=== PATIENT | female | born 1970 | race Caucasian/White ===

== ENCOUNTER 2021-11-26 08:26 | Inpatient (IN) | payer OTHER, SELFPAY ==
[2021-11-26] VITALS (51 sets, daily range): BP systolic 91–122; BP diastolic 70–87; PULSE 87–115; RESP 18; TEMP 36.9; O2SAT 92–100
--- NOTE | ~2021-11-26 | CT_ITS ---
EXAMINATION: CT soft tissue neck w con DATE: 11/26/2021 10:42 INDICATION: Sore throat. Dysphagia. TECHNIQUE: Computed tomography (CT) of the neck was performed with 75 mL Omnipaque-350 intravenous co ntrast. Automated exposure control and iterative reconstruction technique were employed. The dose-josi gth product was 425.42 mGy-cm. COMPARISON: None FINDINGS: There is extensive mucosal thickening in the oropharynx, hypopharynx, and larynx. There is extensive soft tissue swelling and fat stranding in the surrounding deep neck soft tissues. There is a retropharyngeal effusion measuring greater than simple fluid in attenuation with irregular margins, consistent with abscess. The stranding extends inferiorly into the mediastinum. There are no patholo gically enlarged lymph nodes. There is 0% stenosis of the proximal internal carotid arteries relative to normal distal artery lumen diameters. There is an aberrant right subclavian artery. There is near complete opacification of right maxillary sinus. There are multiple broken teeth with periapical jesus encies. There is moderate cervical spondylosis. IMPRESSION: 1. Retropharyngeal abscess. Inflammation of the oropharynx, hypopharynx, larynx, and mediastinum. Reviewed, dictated and finalized at location A. MOLDER IMPRESSION: 1. Retropharyngeal abscess. Inflammation of the oropharynx, hypopharynx, larynx , and mediastinum.
--- NOTE | ~2021-11-26 | CT_ITS ---
EXAMINATION: CT soft tissue neck w con DATE: 11/28/2021 14:52 INDICATION: Trouble breathing. TECHNIQUE: Computed tomography (CT) of the neck was performed with 75 mL Omnipaque-350 intravenous co ntrast. Automated exposure control and iterative reconstruction technique were employed. The dose-josi gth product was 539.14 mGy-cm. COMPARISON: Neck CT 11/26/2021 FINDINGS: The visualized portions of the lung apices demonstrate mild atelectasis. There is mucosal t hickening in the oropharynx and hypopharynx. There is a rim-enhancing low attenuation in the retropha ryngeal region centered to the left of midline with irregular margins measuring 3.1 x 1.1 x 3.4 cm, c onsistent with abscess. There is swelling of the surrounding soft tissues with interval improvement. The epiglottis is normal. There is near complete opacification of right maxillary sinus. There is an aberrant right subclavian artery. There are multiple broken teeth and periapical lucencies. There is moderate cervical spondylosis. IMPRESSION: 1. Left retropharyngeal abscess. Inflammation of the oropharynx and hypopharynx with interval improve ment. Reviewed, dictated and finalized at location A. ERIES MANAGER IMPRESSION: 1. Left retropharyngeal abscess. Inflammation of the oropharynx and hypopharynx with interval improvement.
[2021-11-26 09:45] LABS: Basophils Absolute Auto 0.1 K/mm3 (0.0-0.1); Basophils Percent Auto 0.4 % (0.2-1.2); Hematocrit 42.9 % (37.0-47.0); Hemoglobin 14.3 g/dL (12.0-15.0); Lymphocytes Absolute Auto 1.22 K/mm3 (0.9-3.2); Lymphocytes Percent Auto 5.9 % (18.3-44.2); Mean Corpuscular HGB Conc 33.3 g/dl (32-36); Mean Corpuscular Hemoglobin 29.5 pg (26-34); Mean Corpuscular Volume 88.6 fl (80-100); Mean Platelet Volume 9.8 fl (7.4-10.4); Monocytes Absolute Auto 2.8 K/mm3 (0.1-0.6); Monocytes Percent Auto 13.3 % (2.6-8.5); Neutrophils Absolute Auto 16.6 K/mm3 (1.3-6.7); Neutrophils Percent Auto 79.4 % (45.5-73.1); Platelet Count Result 350 k/mm3 (150-375); Red Blood Count 4.84 M/mm3 (4.2-5.4); Red Cell Distribution Width 12.5 % (11.5-14.5); White Blood Count 20.8 K/mm3 (4.5-10.0)
[2021-11-26 09:55] LABS: Alanine Aminotransferase 13 U/L (4-35); Alkaline Phosphatase 147 U/L (38-126); Anion Gap 12 mmol/L (8-16); Aspartate Amino Transferase 17 U/L (14-36); Bilirubin,Total 0.6 mg/dL (0.2-1.3); Blood Urea Nitrogen 33 mg/dL (7-17); Carbon Dioxide 27 mmol/L (22-30); Chloride 97 mmol/L (98-107); Estimated CRCL calculation 48 ml/min; Estimated Glomerular Filt Rate 53; Glucose 130 mg/dL (65-110); Potassium 4.2 mmol/L (3.4-5.0); Sodium 136 mmol/L (137-145)
--- NOTE | 2021-11-26 10:25 | PC.NURSE ---
Pt O2 sat between 92-93% on room air will walk and measure o2 sat, Dr. Carlton aware
--- NOTE | 2021-11-26 11:40 | ED.GENADULT ---
HPI - General Adult General Chief complaint: Unspecified Stated complaint: congestion, st Time Seen by Provider: 11/26/21 08:42 History of Present Illness HPI narrative: Patient is a 51-year-old female who presents ER with sore throat. Ongoing for 4 days. Reports increased difficulty with swallowing water/food/spit. No difficulty breathing. Reports discomfort in her neck/throat with range of motion. Endorses fever and chills. No known sick contacts. No loss of taste or smell. Related Data Allergies Allergy/AdvReac Type Severity Reaction Status Date / Time No Known Allergies Allergy Verified 11/26/21 12:52 Review of Systems Review of Systems: All systems reviewed & are unremarkable except as noted in HPI and below Constitutional: Constitutional: Denies chills and Reports fever(s) ENT: Reports dysphagia, Denies hoarseness, Reports neck pain, Reports sore throat and Denies tongue swelling Respiratory: Respiratory: Denies cough, Denies dyspnea and Denies stridor Gastrointestinal: Gastrointestinal: Denies abdominal pain, Denies nausea and Denies vomiting PMFSH Past Medical History Medical History (Updated 11/26/21 @ 17:46 by Brandin Haque MD) Healthy female adult Surgical History Surgical History (Updated 11/26/21 @ 17:44 by Brandin Haque MD) No pertinent past surgical history Exam Narrative: GENERAL: Uncomfortable-appearing, well-nourished, and in no acute distress. HEAD: Normocephalic, atraumatic. ENT: Mucous membranes moist. Mild pharyngeal erythema. Uvula midline nonedematous. Patient with mild trismus. Tolerating oral secretions. NECK: Anterior cervical chain lymphadenopathy with tenderness paratracheally. CHEST: Clear to auscultation. No respiratory distress. HEART: Regular rate and rhythm. Normal peripheral pulses. EXTREMITIES: Normal range of motion. No edema. SKIN: Warm, dry, no rash. NEURO: Alert and oriented x3. PSYCH: Normal mood and affect. Course Course Emergency Course: Discussed with ENT who will come scope the patient. They recommend scheduled Decadron as well as scheduled Unasyn. Orders placed with the recommendation. Accepted by hospitalist. Vital Signs Vital signs: Vital Signs Temperature 98.5 F 11/26/21 08:37 Pulse Rate 98 11/26/21 08:37 Respiratory Rate 18 11/26/21 08:37 Blood Pressure 122/87 11/26/21 08:37 Pulse Oximetry 100 11/26/21 08:37 Temperature 98.5 F 11/26/21 08:37 Pulse Rate 115 H 11/26/21 16:30 Respiratory Rate 18 11/26/21 08:47 Blood Pressure 94/70 L 11/26/21 16:01 Pulse Oximetry 96 11/26/21 16:45 Medical Decision Making Vital Signs Vital Signs: Vital Signs Temperature 98.5 F 11/26/21 08:37 Pulse Rate 98 11/26/21 08:37 Respiratory Rate 18 11/26/21 08:37 Blood Pressure 122/87 11/26/21 08:37 Pulse Oximetry 100 11/26/21 08:37 Temperature 98.5 F 11/26/21 08:37 Pulse Rate 115 H 11/26/21 16:30 Respiratory Rate 18 11/26/21 08:47 Blood Pressure 94/70 L 11/26/21 16:01 Pulse Oximetry 96 11/26/21 16:45 Lab Data Result diagrams: 11/26/21 09:16 11/26/21 09:16 Labs: Lab Results 11/26/21 11/26/21 Range/Units 09:16 09:16 WBC 20.8 H (4.5-10.0) K/mm3 RBC 4.84 (4.2-5.4) M/mm3 Hgb 14.3 (12.0-15.0) g/dL Hct 42.9 (37.0-47.0) % MCV 88.6 (80-100) fl MCH 29.5 (26-34) pg MCHC 33.3 (32-36) g/dl RDW 12.5 (11.5-14.5) % Plt Count 350 (150-375) k/mm3 MPV 9.8 (7.4-10.4) fl Immature Gran % (Auto) 1.0 H (0-0.5) % Neut % (Auto) 79.4 H (45.5-73.1) % Lymph % (Auto) 5.9 L (18.3-44.2) % [place] % (Auto) 13.3 H (2.6-8.5) % Eos % (Auto) 0.0 (0-4.4) % Baso % (Auto) 0.4 (0.2-1.2) % Lymph # (Auto) 1.22 (0.9-3.2) K/mm3 [place] # (Auto) 2.8 H (0.1-0.6) K/mm3 Eos # (Auto) 0.0 (0-0.3) K/mm3 Baso # (Auto) 0.1 (0.0-0.1) K/mm3 Abs Immat Gran (auto) 0.20 H (0.00-0.031) K/mm3 Absolute Neuts (auto)
--- NOTE | 2021-11-26 12:14 | PC.NURSE ---
Pt updated on results and plan of care by MD Haque. Pt provided ice pack upon request.
[2021-11-26] MEDS: MORPHINE SULFATE (*CRX) 4 MG/ML INJ IV PUSH (12:53)
[2021-11-26] MEDS: AMPICILLIN SULB 3 GM/NS 100 ML 3 GM/100 ML VIAL IVPB ×2 (12:53→19:52)
[2021-11-26] MEDS: SODIUM CHLORIDE 0.9% IV 1,000 ML 125 ML IV CONT ×2 (13:59→23:23)
--- NOTE | 2021-11-26 16:50 | PC.NURSE ---
MD Pack at bedside performing scope. Pt tolerated well.
--- NOTE | 2021-11-26 17:07 | WPDPROCEDUR ---
Procedures Other Procedures Procedure 1: Other Procedure: Laryngoscopy Afrin/lidocaine applied, normal nasopharynx, normal oropharynx, pharyngeal and hypopharygeal exam consistent with global edema/erythema, no plurulence, some fibrinous debris on the glottic side of the epiglottis. Epiglottic edema as well. Global narrowing, glottis visualized, normal appearance and movement
--- NOTE | 2021-11-26 17:10 | WPDCN ---
Assessment and Plan Assessment and plan (1) Pharyngitis: Code(s): J02.9 - Acute pharyngitis, unspecified Status: Acute Assessment and Plan: Recommend 8mg of decadron q 8 times three doses. IV unasyn, NPO other than ice chips. With any stridor or subjective worsening of breathing would electively intubate. Please trend white count daily. If intubation required would perform in the OR with trach tray available. (2) Epiglottitis: Code(s): J05.10 - Acute epiglottitis without obstruction Status: Acute HPI Data of Consult Date/Time: 11/26/21 17:10 Requesting Physician: Arlene Meyer MD Primary Care Provider: Venita KangMD Consult Narrative Narrative: Angely Becker is a 51 year old female with a history of sore throat times three days. Worsened in the past 24 hours. wbc 20. Patient largest complaint is dysphagia. No antibiotics at this point. No other treatments. Per my read of the ct pharyngeal edema/fat stranding, no obvious abscess. Meds Home Medications and Allergies Allergies Allergy/AdvReac Type Severity Reaction Status Date / Time No Known Allergies Allergy Verified 11/26/21 12:52 Vital Signs Vital Signs - 24 hr 11/26/21 08:37 11/26/21 08:47 11/26/21 13:08 Temperature 36.9 C Pulse Rate 98 98 Respiratory Rate 18 18 Blood Pressure 122/87 122/87 Pulse Oximetry 100 99 92 11/26/21 13:09 11/26/21 13:15 11/26/21 13:30 Temperature Pulse Rate Respiratory Rate Blood Pressure 109/85 Pulse Oximetry 93 96 98 11/26/21 13:45 11/26/21 14:00 11/26/21 14:01 Temperature Pulse Rate 99 Respiratory Rate Blood Pressure 111/81 Pulse Oximetry 99 100 99 11/26/21 14:15 11/26/21 14:31 11/26/21 14:45 Temperature Pulse Rate Respiratory Rate Blood Pressure Pulse Oximetry 100 100 99 11/26/21 15:00 11/26/21 15:15 11/26/21 15:30 Temperature Pulse Rate Respiratory Rate Blood Pressure Pulse Oximetry 100 100 100 11/26/21 15:45 11/26/21 16:01 11/26/21 16:03 Temperature Pulse Rate Respiratory Rate Blood Pressure 94/70 L Pulse Oximetry 100 98 11/26/21 16:21 11/26/21 16:30 11/26/21 16:45 Temperature Pulse Rate 115 H Respiratory Rate Blood Pressure Pulse Oximetry 98 96 96 Results Labs CBC & Chem 7: 11/26/21 09:16 11/26/21 09:16 Labs: Short CBC 11/26/21 Range/Units 09:16 WBC 20.8 H (4.5-10.0) K/mm3 Hgb 14.3 (12.0-15.0) g/dL Hct 42.9 (37.0-47.0) % Plt Count 350 (150-375) k/mm3 BMP 11/26/21 09:16 Sodium 136 L Potassium 4.2 Chloride 97 L Carbon Dioxide 27 BUN 33 H Creatinine 1.10 H Glucose 130 H Calcium 10.0 Liver Function 11/26/21 Range/Units 09:16 Total Bilirubin 0.6 (0.2-1.3) mg/dL AST 17 (14-36) U/L ALT 13 (4-35) U/L Alkaline Phosphatase 147 H (38-126) U/L Albumin 4.0 (3.5-5.1) g/dL
--- NOTE | 2021-11-26 18:51 | PM.IMHP ---
H&P: HPI History of Present Illness Date/Time: 11/26/21 18:51 ED-HPI narrative: Patient is a 51-year-old female who presents ER with sore throat. Ongoing for 4 days. Reports increased difficulty with swallowing water/food/spit. No difficulty breathing. Reports discomfort in her neck/throat with range of motion. Endorses fever and chills. No known sick contacts. No loss of taste or smell. 11/26/2021 interval history: patient was seen by ENT and had a laryngoscope patient does not need I&D and recommended Unasyn and Decadron 8 mg q.8 for 3 doses, strictly NPO other than ice chips, in the main patient's symptoms worsen with stridor patient may be intubated, currently patient stats pain is better denies any difficulty with breathing, fever or chills patient admitted as inpatient most likely stay in the hospital 2 midnights Chief Complaint: sore throat Review of Systems Review of Systems: All systems reviewed & are unremarkable except as noted in HPI and below PMFSH Past Medical History Medical History (Updated 11/26/21 @ 17:46 by Brandin Haque MD) Healthy female adult Surgical History Surgical History (Updated 11/26/21 @ 17:44 by Brandin Haque MD) No pertinent past surgical history Family History Family History (Updated 11/27/21 @ 06:29 by Hetal Issa RN) Mother Breast cancer Grandparent Breast cancer Father Heart disease Social History Social History Smoking packs per day: 0.5 Smoking cigarettes per day: 10.0 Years smoked: 30 Smoking pack-years: 15.00 Smoking status: Current every day smoker Tobacco type: cigarettes Alcohol intake: never Substance use type: does not use Spiritual care concerns: No Meds Home Medications and Allergies Home Medications Medication Instructions Recorded Confirmed Type No Home Medications 11/27/21 11/27/21 History Allergies Allergy/AdvReac Type Severity Reaction Status Date / Time No Known Allergies Allergy Verified 11/26/21 12:52 Vital Signs Vital Signs - 24 hr 11/26/21 08:37 11/26/21 08:47 11/26/21 13:08 Temperature 98.5 F Pulse Rate 98 98 Respiratory Rate 18 18 Blood Pressure 122/87 122/87 Pulse Oximetry 100 99 92 11/26/21 13:09 11/26/21 13:15 11/26/21 13:30 Temperature Pulse Rate Respiratory Rate Blood Pressure 109/85 Pulse Oximetry 93 96 98 11/26/21 13:45 11/26/21 14:00 11/26/21 14:01 Temperature Pulse Rate 99 Respiratory Rate Blood Pressure 111/81 Pulse Oximetry 99 100 99 11/26/21 14:15 11/26/21 14:31 11/26/21 14:45 Temperature Pulse Rate Respiratory Rate Blood Pressure Pulse Oximetry 100 100 99 11/26/21 15:00 11/26/21 15:15 11/26/21 15:30 Temperature Pulse Rate Respiratory Rate Blood Pressure Pulse Oximetry 100 100 100 11/26/21 15:45 11/26/21 16:01 11/26/21 16:03 Temperature Pulse Rate Respiratory Rate Blood Pressure 94/70 L Pulse Oximetry 100 98 11/26/21 16:21 11/26/21 16:30 11/26/21 16:45 Temperature Pulse Rate 115 H Respiratory Rate Blood Pressure Pulse Oximetry 98 96 96 Exam Narrative: Patient is comfortable, NAD HEENT: eyes are clear and none icteric, , throat no obvious erythema or edema LUNGS: normal respiratory effort ABD: not distended Lower extremities: no edema SKIN: nonjaundiced Neuro: grossly intact. H&P: Results Labs Labs: Short CBC 11/26/21 Range/Units 09:16 WBC 20.8 H (4.5-10.0) K/mm3 Hgb 14.3 (12.0-15.0) g/dL Hct 42.9 (37.0-47.0) % Plt Count 350 (150-375) k/mm3 BMP 11/26/21 09:16 Sodium 136 L Potassium 4.2 Chloride 97 L Carbon Dioxide 27 BUN 33 H Creatinine 1.10 H Glucose 130 H Calcium 10.0 Liver Function 11/26/21 Range/Units 09:16 Total Bilirubin 0.6 (0.2-1.3) mg/dL AST 17 (14-36) U/L ALT 13 (4-35) U/L Alkaline Phosphatase 147 H (38-126) U/L Albumin 4.0 (3.5-5.1)
[2021-11-27] VITALS (11 sets, daily range): BP systolic 97–109; BP diastolic 59–88; PULSE 76–104; RESP 16–22; TEMP 36.5–36.6; O2SAT 95–98; BMI 25.0
--- NOTE | 2021-11-27 00:23 | PC.NURSE ---
pt up walking to the bathroom denies any SOB
[2021-11-27] MEDS: MORPHINE SULFATE (*CRX) 4 MG/ML INJ IV PUSH ×2 (00:44→22:47)
[2021-11-27] MEDS: AMPICILLIN SULB 3 GM/NS 100 ML 3 GM/100 ML VIAL IVPB ×4 (01:30→21:00)
--- NOTE | 2021-11-27 01:37 | PC.NURSE ---
pt states feels like swelling is going down decreased difficulty swallowing, resp even unlabored
--- NOTE | 2021-11-27 04:01 | PC.NURSE ---
sleeping resp even unlabored waiting bed placement
[2021-11-27 05:55] LABS: Basophils Percent Auto 0.2 % (0.2-1.2); Hematocrit 37.9 % (37.0-47.0); Hemoglobin 12.4 g/dL (12.0-15.0); Immature Granulocyte Absolute 0.15 K/mm3 (0.00-0.031); Lymphocytes Absolute Auto 0.92 K/mm3 (0.9-3.2); Lymphocytes Percent Auto 6.1 % (18.3-44.2); Mean Corpuscular HGB Conc 32.7 g/dl (32-36); Mean Corpuscular Hemoglobin 29.1 pg (26-34); Monocytes Absolute Auto 0.5 K/mm3 (0.1-0.6); Monocytes Percent Auto 3.1 % (2.6-8.5); Neutrophils Absolute Auto 13.5 K/mm3 (1.3-6.7); Neutrophils Percent Auto 89.6 % (45.5-73.1); Platelet Count Result 382 k/mm3 (150-375); Red Blood Count 4.26 M/mm3 (4.2-5.4); Red Cell Distribution Width 12.6 % (11.5-14.5)
--- NOTE | 2021-11-27 06:17 | ADMGEN ---
This patient, Angely Becker, was admitted to IMU Room 202-01 11/27/21 at 0600. Patient/family oriented to hospital policies and general routines including ID bracelet, bed and alarms, visiting hours, pain management, procedures, bathroom and other care routines, personal items, smoking policy, room service/diet, and visiting hours. Information on how to activate the Rapid Response Team has been discussed. Patient/Family are encouraged to report perceived risks to care and to ask questions if they do not understand what they are told or what they should do.
[2021-11-27] MEDS: SODIUM CHLORIDE 0.9% IV 1,000 ML 125 ML IV CONT (08:56)
--- NOTE | 2021-11-27 11:34 | PCSTNOTE ---
Please refer to the Bedside Swallow Evaluation in the EMR. Please note, silent aspiration cannot be ruled out at bedside.
--- NOTE | 2021-11-27 15:11 | PC.NURSE ---
This patient, Anegly Becker, was transferred to [[facility]] on 11/27/21 at 1511. Personal belongings sent with patient. Report given to [ VIRGIL Anderson @ [phone]]. Appropriate documentation sent with patient.
--- NOTE | 2021-11-27 15:13 | PC.NURSE ---
This patient, Angely Becker, was received from IMU on 11/27/21 at 1513. Patient/family oriented to unit policies and routines. Report received from VIRGIL Suggs.
--- NOTE | 2021-11-27 17:30 | PM.IMPN ---
Progress Note: A&P Assessment and Plan (1) Abscess, retropharyngeal: Code(s): J39.0 - Retropharyngeal and parapharyngeal abscess Status: Acute Assessment and Plan: ED-HPI narrative: Patient is a 51-year-old female who presents ER with sore throat. Ongoing for 4 days. Reports increased difficulty with swallowing water/food/spit. No difficulty breathing. Reports discomfort in her neck/throat with range of motion. Endorses fever and chills. No known sick contacts. No loss of taste or smell. 11/26/2021 interval history: patient was seen by ENT and had a laryngoscope patient does not need I&D and recommended Unasyn and Decadron 8 mg q.8 for 3 doses, strictly NPO other than ice chips, in the main patient's symptoms worsen with stridor patient may be intubated, currently patient stats pain is better denies any difficulty with breathing, fever or chills. 11/27/2021 interval history: patient remains clinically stable however was quite hungry and patient was seen by speech therapy is and had evaluation recommended patient can have a regular diet, will start a regular diet will continue present management reassess tomorrow and further recommendation to follow Subjective Date/time seen: 11/27/21 17:30 ED-HPI narrative: Patient is a 51-year-old female who presents ER with sore throat. Ongoing for 4 days. Reports increased difficulty with swallowing water/food/spit. No difficulty breathing. Reports discomfort in her neck/throat with range of motion. Endorses fever and chills. No known sick contacts. No loss of taste or smell. 11/26/2021 interval history: patient was seen by ENT and had a laryngoscope patient does not need I&D and recommended Unasyn and Decadron 8 mg q.8 for 3 doses, strictly NPO other than ice chips, in the main patient's symptoms worsen with stridor patient may be intubated, currently patient stats pain is better denies any difficulty with breathing, fever or chills. 11/27/2021 interval history: patient remains clinically stable however was quite hungry and patient was seen by speech therapy is and had evaluation recommended patient can have a regular diet, will start a regular diet will continue present management reassess tomorrow and further recommendation to follow Review of Systems Review of Systems: All systems reviewed & are unremarkable except as noted in HPI and below Exam Narrative: Patient is comfortable, NAD HEENT: eyes are clear and none icteric, , throat no obvious erythema or edema LUNGS: normal respiratory effort ABD: not distended Lower extremities: no edema SKIN: nonjaundiced Neuro: grossly intact. Objective Data Vital Signs Vital Signs: Vital Signs - 24 hr 11/26/21 17:45 11/26/21 18:01 11/26/21 18:15 Temperature Pulse Rate 105 H Respiratory Rate Blood Pressure 91/76 L Pulse Oximetry 95 94 94 11/26/21 18:16 11/26/21 18:30 11/26/21 18:45 Temperature Pulse Rate Respiratory Rate Blood Pressure Pulse Oximetry 93 95 94 11/26/21 19:04 11/26/21 19:15 11/26/21 19:30 Temperature Pulse Rate 109 H Respiratory Rate Blood Pressure Pulse Oximetry 99 98 99 11/26/21 19:45 11/26/21 20:00 11/26/21 20:01 Temperature Pulse Rate 101 H Respiratory Rate Blood Pressure 103/85 Pulse Oximetry 100 95 93 11/26/21 20:15 11/26/21 20:30 11/26/21 20:45 Temperature Pulse Rate Respiratory Rate Blood Pressure Pulse Oximetry 97 97 97 11/26/21 21:00 11/26/21 21:15 11/26/21 21:30 Temperature Pulse Rate 94 Respiratory Rate Blood Pressure Pulse Oximetry 94 93 94 11/26/21 21:45 11/26/21 22:00 11/26/21 22:01 Temperature Pulse Rate 92 Respiratory Rate Blood Pressure 109/85 Pulse Oximetry 94 96 97 11/26/21 22:15 11/26/21 22:30 11/26/21 22:45 Temperature Pulse Rate Respiratory Rate Blood Pressure Pulse Oximetry 97 96 94 11/26/21 23:00
[2021-11-28] VITALS (12 sets, daily range): BP systolic 96–134; BP diastolic 43–98; PULSE 54–80; RESP 10–21; TEMP 36.3–37; O2SAT 94–100
[2021-11-28 05:45] LABS: Hematocrit 33.9 % (37.0-47.0); Hemoglobin 11.3 g/dL (12.0-15.0); Mean Corpuscular HGB Conc 33.3 g/dl (32-36); Mean Corpuscular Hemoglobin 30.1 pg (26-34); Mean Corpuscular Volume 90.2 fl (80-100); Mean Platelet Volume 10.4 fl (7.4-10.4); Platelet Count Result 368 k/mm3 (150-375); Red Blood Count 3.76 M/mm3 (4.2-5.4); Red Cell Distribution Width 12.6 % (11.5-14.5); White Blood Count 20.1 K/mm3 (4.5-10.0)
[2021-11-28] MEDS: AMPICILLIN SULB 3 GM/NS 100 ML 3 GM/100 ML VIAL IVPB ×4 (06:09→23:36)
--- NOTE | 2021-11-28 07:17 | WPDHPUPDATE1 ---
History and Physical Update Update Date/Time: 11/28/21 07:17 History and Physical has been reviewed, including an updated exam of the patient. There are NO changes in the patient's condition. Risks, benefits, and alternatives have been discussed and questions answered. Patient agrees to proceed with procedure.
--- NOTE | 2021-11-28 11:34 | PM.PNGS ---
Progress Note: A&P Assessment and Plan (1) Abscess, retropharyngeal: Code(s): J39.0 - Retropharyngeal and parapharyngeal abscess Status: Acute Assessment and Plan: Recommend discontinuing steroids continuing IV Unasyn. Okay from diet from ENT standpoint advanced per speech therapy. Would recommend white count cbc Wednesday a.m.. If white count not improving would recommend contrasted CT to further evaluate progression/improvement/worsening of neck process. Overall her endoscopic examination is much much improved with a safe a stable airway and globally resolved epiglottic and pharyngeal edema. (2) Epiglottitis: Code(s): J05.10 - Acute epiglottitis without obstruction Status: Acute (3) Pharyngitis: Code(s): J02.9 - Acute pharyngitis, unspecified Status: Acute Subjective Subjective Date/Time Seen: 11/28/21 11:34 Objective Data Vital Signs Vital Signs: Vital Signs - 24 hr 11/27/21 16:00 11/27/21 19:19 11/27/21 20:00 Temperature 36.6 C 36.6 C Pulse Rate 92 91 91 Respiratory Rate 16 18 18 Blood Pressure 100/69 104/72 Pulse Oximetry 98 95 95 11/28/21 03:07 11/28/21 08:00 Temperature 36.4 C L 36.3 C L Pulse Rate 73 62 Respiratory Rate 14 14 Blood Pressure 100/58 L Pulse Oximetry 96 94 Intake/Output Intake/Output: Intake & Output 11/25/21 11/26/21 11/27/21 11/28/21 23:59 23:59 23:59 23:59 Intake Total 1200 3010 1300 Balance 1200 3010 1300 Meds/Results Medications: Active Medications Generic Name Dose Route Start Last Admin Trade Name Freq PRN Reason Stop Dose Admin Ampicillin Sodium/Sulbactam Sodium 3 gm in 100 mls @ 200 mls/hr 11/27/21 19:30 11/28/21 07:05 Unasyn 3 Gm/Ns 100 Ml IVPB Infused Q6HR JONY Infusion Morphine Sulfate 4 mg 11/26/21 12:09 11/27/21 22:47 Morphine Sulfate (*Crx) 4 Mg/Ml Inj IV PUSH 4 mg Q2H PRN Administration Pain Rated 7-10 Ondansetron HCl 4 mg 11/26/21 12:09 Ondansetron Inj 4 Mg/2 Ml Vial IV PUSH Q4H PRN Nausea Radiology Results: ITS Impressions Soft Tissue Neck CT 11/26/21 10:54 IMPRESSION: 1. Retropharyngeal abscess. Inflammation of the oropharynx, hypopharynx, larynx, and mediastinum. Labs Labs: Laboratory Results - last 24 hr 11/28/21 04:44 WBC 20.1 H RBC 3.76 L Hgb 11.3 L Hct 33.9 L MCV 90.2 MCH 30.1 MCHC 33.3 RDW 12.6 Plt Count 368 MPV 10.4 Quality VTE Prophylaxis VTE prophylaxis: mechanical ordered
--- NOTE | 2021-11-28 12:59 | WPDPROCEDUR ---
Procedures Other Procedures Procedure 1: Other Procedure: Procedure laryngoscopy. Afrin lidocaine applied to the bilateral nasal passages flexible laryngoscope place transnasally normal nasopharynx normal air or oral pharynx the pharyngeal edema and erythema as well as fibrinous infectious debris on the epiglottis is all resolved there still mild global edema but there is no infectious debris on the epiglottis the epiglottis appears somewhat normal the airways patent there some inferior based edema in the post cricoid region however this is vastly improved from her previous exam 24 hours ago. Excuse me 36 hours ago.
--- NOTE | 2021-11-28 16:49 | P.PNAN_ITS ---
Anes - Eval Pre Procedure Procedure: Operation Date: 11/28/21 17:00 Proposed Procedures p Right Maxillary antrostomy, Incision and drainage left neck abscess - Christopher Pack MD Date/Time: 11/28/21 16:49 Pre Op Diagnosis: Retropharyngeal Abscess Patient Data Age: 51 Gender: F Height: 1.7 m Weight: 72.8 kg Last Vital Signs Temp 97.4 F L 11/28/21 08:00 Pulse 62 11/28/21 08:00 Resp 14 11/28/21 08:00 BP 100/58 L 11/28/21 03:07 Pulse Ox 94 11/28/21 08:00 Allergies Allergy/AdvReac Type Severity Reaction Status Date / Time No Known Allergies Allergy Verified 11/26/21 12:52 Home Medications Medication Instructions Recorded Confirmed Type No Home Medications 11/27/21 11/27/21 History Laboratory Tests 11/28/21 04:44 WBC 20.1 K/mm3 H K/mm3 (4.5-10.0) RBC 3.76 M/mm3 L M/mm3 (4.2-5.4) Hgb 11.3 g/dL L g/dL (12.0-15.0) Hct 33.9 % L % (37.0-47.0) MCV 90.2 fl fl (80-100) MCH 30.1 pg pg (26-34) MCHC 33.3 g/dl g/dl (32-36) RDW 12.6 % % (11.5-14.5) Plt Count 368 k/mm3 k/mm3 (150-375) MPV 10.4 fl fl (7.4-10.4) Patient hx anesthesia problems: none Family hx anesthesia problems: none Results Review: All pre-operative results and documents have been reviewed as part of the pre-operative evaluation. FORMERLY [facility] Past Medical History Medical History (Updated 11/28/21 @ 16:50 by Rubin Gallagher CRNA) Abscess, retropharyngeal Epiglottitis Healthy female adult Pharyngitis Surgical History Surgical History No pertinent past surgical history Family History Family History Mother Breast cancer Grandparent Breast cancer Father Heart disease Social History Social History Smoking packs per day: 0.5 Smoking cigarettes per day: 10.0 Years smoked: 30 Smoking pack-years: 15.00 Smoking status: Current every day smoker Tobacco type: cigarettes Alcohol intake: never Substance use type: does not use Spiritual care concerns: No Exam Day of Procedure 11/28/21 16:49 Patient weight: overweight Heart: regular rate and rhythm Airway: other (poor dentition throughout) Neurological: alert and oriented and other
--- NOTE | 2021-11-28 17:20 | P.HP_ITS ---
H&P: HPI History of Present Illness Date/Time: 11/28/21 17:20 Chief Complaint: Parapharyngeal Abscess retropharyngeal abscess left-sided right maxillary sinusitis Narrative: Patient presents for surgical procedure consent obtained patient aware of risks benefits FORMERLY [facility], [facility] Past Medical History Medical History (Updated 11/28/21 @ 17:21 by Christopher Pack MD) Abscess, retropharyngeal Epiglottitis Healthy female adult Pharyngitis Surgical History Surgical History No pertinent past surgical history Family History Family History Mother Breast cancer Grandparent Breast cancer Father Heart disease Social History Social History Smoking packs per day: 0.5 Smoking cigarettes per day: 10.0 Years smoked: 30 Smoking pack-years: 15.00 Smoking status: Current every day smoker Tobacco type: cigarettes Alcohol intake: never Substance use type: does not use Gender identity (if verbalized by the patient): Female Sexual Orientation (if Verbalized by the Patient): Straight or Heterosexual Spiritual care concerns: No Meds Home Medications and Allergies Home Medications Medication Instructions Recorded Confirmed Type No Home Medications 11/27/21 11/27/21 History Allergies Allergy/AdvReac Type Severity Reaction Status Date / Time No Known Allergies Allergy Verified 11/26/21 12:52 Vital Signs Vital Signs - 24 hr 11/27/21 19:19 11/27/21 20:00 11/28/21 03:07 Temperature 36.6 C 36.4 C L Pulse Rate 91 91 73 Respiratory Rate 18 18 14 Blood Pressure 104/72 100/58 L Pulse Oximetry 95 95 96 11/28/21 08:00 11/28/21 16:59 Temperature 36.3 C L 37.0 C Pulse Rate 62 80 Respiratory Rate 14 16 Blood Pressure 108/69 Pulse Oximetry 94 100 Exam Neck: Other: Neck pain left worse than right H&P: Results Labs Labs: Short CBC 11/28/21 Range/Units 04:44 WBC 20.1 H (4.5-10.0) K/mm3 Hgb 11.3 L (12.0-15.0) g/dL Hct 33.9 L (37.0-47.0) % Plt Count 368 (150-375) k/mm3 Assessment and Plan Assessment and plan (1) Abscess, retropharyngeal: Code(s): J39.0 - Retropharyngeal and parapharyngeal abscess Status: Acute Assessment and Plan: Plan is for OR endoscopic right-sided maxillary antrostomy and left-sided transcervical incision and drainage of neck abscess (2) Parapharyngeal abscess: Code(s): J39.0 - Retropharyngeal and parapharyngeal abscess Status: Acute (3) Right maxillary sinusitis: Code(s): J32.0 - Chronic maxillary sinusitis Status: Acute Quality VTE Prophylaxis VTE prophylaxis: mechanical ordered
--- NOTE | 2021-11-28 17:22 | WPDHPUPDATE1 ---
History and Physical Update Update Date/Time: 11/28/21 17:22 History and Physical has been reviewed, including an updated exam of the patient. There are NO changes in the patient's condition. Risks, benefits, and alternatives have been discussed and questions answered. Patient agrees to proceed with procedure.
[2021-11-28] MEDS: LIDO 1%/EPINEPHRINE 1:100,000 50 ML VIAL 10 ML INFILTRATE (17:54)
[2021-11-28] MEDS: OXYMETAZOLINE HCL 0.05% NAS 15 ML BTL (*BKC) 1 SPRAY NASAL (18:26)
--- NOTE | 2021-11-28 18:28 | WPDANESEFPP ---
Anes - Eval Final PreProcedure Day of Procedure 11/28/21 18:28 Patient weight: overweight Heart: regular rate and rhythm Lungs: clear to auscultation and normal air movement Airway: Mallampati scale class II Neurological: alert and oriented Last oral intake: >/= 8 hours ASA classification: II Emergent: yes Anesthetic plan: proceed Anesthesia type and monitoring: general ETT Results Review: All pre-operative results and documents have been reviewed as part of the pre-operative evaluation. Informed Consent: The patient's anesthetic plan and its attendant risks and benefits were discussed with the patient/family/POA. Questions were solicited and answers provided to the satisfaction of the patient/family/POA.
[2021-11-28] MEDS: LACTATED RINGERS 1,000 ML 30 ML IV CONT (19:00)
[2021-11-28] MEDS: fentaNYL CITRATE INJ (*CRX) 100 MCG/2 ML VIAL 25 MCG IV PUSH ×4 (19:26→19:53)
--- NOTE | 2021-11-28 19:28 | SUR.PHASEI ---
Simple mask removed at 1927.
--- NOTE | 2021-11-28 19:31 | W.PM.PROC2 ---
Procedure Note - Detailed Date of Procedure 11/28/21 Pre-op Diagnosis Retropharyngeal Abscess, left parapharyngeal abscess, right maxillary sinus sinusitis Post-op Diagnosis same Procedure Performed Transcervical as well as transoral incision and drainage of left parapharyngeal abscess right-sided endoscopic maxillary antrostomy Surgeon Christopher Pack MD Anesthesia general Indications See above Findings No purulence encountered transcervically significant amount of purulence encountered transorally in the retropharyngeal and left parapharyngeal space. No scant mucoid purulence in the right maxillary sinus as well and mucus. Description of Procedure Patient correctly identified consent verified on the floor. Patient brought down to preop. Patient brought to operating room. Time-out performed. General anesthesia induced endotracheal tube secured. Patient prepped and draped for the aforementioned procedure. Second time-out performed. Images reviewed. A 3 cm transcervical incision made just anterior to the SCM 2 finger breaths below the mandible on the left side. Blunt dissection carried out to the presumed prevertebral space parapharyngeal space no purulence encountered no significant bleeding encountered a [place] drain was placed in the wound was washed out. The McIvor mouth gag was then placed transorally and a Bovie at a setting of 10 was utilized to perform a posterior pharyngeal incision or blunt cautery in the oral cavity blunt dissection was carried down to the left parapharyngeal space were purulence was encountered this was cultured. Hemostasis was adequate. The endoscope was 0 degree was then utilized following removal of the McIvor mouthgag on the right nasal passage septal deviation was noted on that side Afrin-soaked pledgets were placed allowed to sit for 5 minutes the middle turbinate was then medialized and a maxillary antrostomy created with microdebrider straight through cut backbiter and double ball tip probe to ensure connect the natural os. Mucoid purulence was encountered this was irrigated. Afrin-soaked pledget placed hemostasis was adequate. This marked in the procedure. I performed all dictated portions. Of note the [place] was sutured in using a interrupted 3-0 nylon suture. Care the patient is turned over to Anesthesiology total blood loss 15 cc. There were no immediate complications. I performed all dictated portions of the procedure. Estimated Blood Loss 15 Drains Yes Packing No Pathology none sent Complications No immediate complications Condition stable Disposition floor
[2021-11-28] MEDS: HYDROmorphone HCL INJ (*CRX) 1 MG/ML SYR 0.5 MG IV PUSH ×2 (20:03→20:08)
--- NOTE | 2021-11-28 20:07 | SUR.PHASEI ---
Patient didn't understand the seriousness of this surgery/problem in PACU. She repeatedly kept asking for water and ice chips and got mad at the nurse. She kept cussing and was asked nicely to stop a couple of times.
[2021-11-28] MEDS: MORPHINE SULFATE (*CRX) 4 MG/ML INJ IV PUSH (21:05)
[2021-11-29] VITALS: BP 117/78; PULSE 70; RESP 21; TEMP 36; O2SAT 100
[2021-11-29] MEDS: MORPHINE SULFATE (*CRX) 4 MG/ML INJ IV PUSH (02:50)
[2021-11-29] MEDS: OXYMETAZOLINE HCL 0.05% NAS 15 ML BTL (*BKC) 1 SPRAY NASAL (02:51)
[2021-11-29 04:00] VITALS: BP 105/54; PULSE 64; RESP 20; TEMP 36.1; O2SAT 99
[2021-11-29] MEDS: AMPICILLIN SULB 3 GM/NS 100 ML 3 GM/100 ML VIAL IVPB ×4 (05:26→23:07)
[2021-11-29 08:50] VITALS: BP 116/78; PULSE 56; RESP 16; TEMP 36.6; O2SAT 96
--- NOTE | 2021-11-29 09:04 | PM.IMPN ---
Progress Note: A&P Assessment and Plan (1) Abscess, retropharyngeal: Code(s): J39.0 - Retropharyngeal and parapharyngeal abscess Status: Acute Assessment and Plan: ED-HPI narrative: Patient is a 51-year-old female who presents ER with sore throat. Ongoing for 4 days. Reports increased difficulty with swallowing water/food/spit. No difficulty breathing. Reports discomfort in her neck/throat with range of motion. Endorses fever and chills. No known sick contacts. No loss of taste or smell. 11/26/2021 interval history: patient was seen by ENT and had a laryngoscope patient does not need I&D and recommended Unasyn and Decadron 8 mg q.8 for 3 doses, strictly NPO other than ice chips, in the main patient's symptoms worsen with stridor patient may be intubated, currently patient stats pain is better denies any difficulty with breathing, fever or chills. 11/27/2021 interval history: patient remains clinically stable however was quite hungry and patient was seen by speech therapy is and had evaluation recommended patient can have a regular diet, will start a regular diet will continue present management reassess tomorrow and further recommendation to follow. 11/28/2021 interval history:Management to see the patient patient appears more in pain was complaining neck pain and neck swelling state CT scan of the neck was ordered which was reviewed the ENT patient was emergently taken to OR for possible I&D, will continue to monitor and follow the patient. Subjective Date/time seen: 11/28/2020 ED-HPI narrative: Patient is a 51-year-old female who presents ER with sore throat. Ongoing for 4 days. Reports increased difficulty with swallowing water/food/spit. No difficulty breathing. Reports discomfort in her neck/throat with range of motion. Endorses fever and chills. No known sick contacts. No loss of taste or smell. 11/26/2021 interval history: patient was seen by ENT and had a laryngoscope patient does not need I&D and recommended Unasyn and Decadron 8 mg q.8 for 3 doses, strictly NPO other than ice chips, in the main patient's symptoms worsen with stridor patient may be intubated, currently patient stats pain is better denies any difficulty with breathing, fever or chills. 11/27/2021 interval history: patient remains clinically stable however was quite hungry and patient was seen by speech therapy is and had evaluation recommended patient can have a regular diet, will start a regular diet will continue present management reassess tomorrow and further recommendation to follow 11/28/2021 interval history:Management to see the patient patient appears more in pain was complaining neck pain and neck swelling state CT scan of the neck was ordered which was reviewed the ENT patient was emergently taken to OR for possible I&D, will continue to monitor and follow the patient. Review of Systems Review of Systems: All systems reviewed & are unremarkable except as noted in HPI and below Exam Narrative: Patient is comfortable, NAD patient is in pain HEENT: eyes are clear and none icteric, there is more swelling along the anterior aspect of the neck LUNGS: normal respiratory effort ABD: not distended Lower extremities: no edema SKIN: nonjaundiced Neuro: grossly intact. Objective Data Vital Signs Vital Signs: Vital Signs - 24 hr 11/28/21 16:59 11/28/21 19:00 11/28/21 19:15 Temperature 98.6 F 97.4 F L Pulse Rate 80 62 70 Respiratory Rate 16 10 L 12 Blood Pressure 108/69 122/88 134/85 Pulse Oximetry 100 100 100 11/28/21 19:30 11/28/21 19:35 11/28/21 19:45 Temperature Pulse Rate 59 L 54 L 58 L Respiratory Rate 10 L 13 18 Blood Pressure 134/97 H 119/98 H 96/43 L Pulse Oximetry 94 96 100 11/28/21 20:00 11/28/21 20:15 11/28/21 20:40 Temperature Pulse Rate 67 58 L Respiratory Rate 10 L 12 Blood Pressure 125/81 126/86 Pulse Oximetry 100 98 98 11/28/21 22:30 11/29/21 00:00 11/29/21 04:0
[2021-11-29 10:18] LABS: Hemoglobin 10.5 g/dL (12.0-15.0); Mean Corpuscular HGB Conc 32.8 g/dl (32-36); Mean Corpuscular Hemoglobin 29.3 pg (26-34); Mean Corpuscular Volume 89.4 fl (80-100); Mean Platelet Volume 9.4 fl (7.4-10.4); Platelet Count Result 367 k/mm3 (150-375); Red Blood Count 3.58 M/mm3 (4.2-5.4); Red Cell Distribution Width 12.8 % (11.5-14.5); White Blood Count 12.9 K/mm3 (4.5-10.0)
--- NOTE | 2021-11-29 12:55 | PM.IMPN ---
Progress Note: A&P Assessment and Plan (1) Abscess, retropharyngeal: Code(s): J39.0 - Retropharyngeal and parapharyngeal abscess Status: Acute Assessment and Plan: ED-HPI narrative: Patient is a 51-year-old female who presents ER with sore throat. Ongoing for 4 days. Reports increased difficulty with swallowing water/food/spit. No difficulty breathing. Reports discomfort in her neck/throat with range of motion. Endorses fever and chills. No known sick contacts. No loss of taste or smell. 11/26/2021 interval history: patient was seen by ENT and had a laryngoscope patient does not need I&D and recommended Unasyn and Decadron 8 mg q.8 for 3 doses, strictly NPO other than ice chips, in the main patient's symptoms worsen with stridor patient may be intubated, currently patient stats pain is better denies any difficulty with breathing, fever or chills. 11/27/2021 interval history: patient remains clinically stable however was quite hungry and patient was seen by speech therapy is and had evaluation recommended patient can have a regular diet, will start a regular diet will continue present management reassess tomorrow and further recommendation to follow. 11/28/2021 interval history:Management to see the patient patient appears more in pain was complaining neck pain and neck swelling state CT scan of the neck was ordered which was reviewed the ENT patient was emergently taken to OR for possible I&D, will continue to monitor and follow the patient. 11/29/2021 interval history: patient with a pharyngeal abscess had a emergent I and D on 11/28, this morning patient is the pain is still persist and painful to swallow, will continue clear liquid, patient white counts of persist multifactorial secondary to steroid as well as possible infection, will culture no growth so far, abscess culture was collected will follow-up, will continue Unasyn and monitor further recommendation to follow Subjective Date/time seen: 11/29/21 12:55 ED-HPI narrative: Patient is a 51-year-old female who presents ER with sore throat. Ongoing for 4 days. Reports increased difficulty with swallowing water/food/spit. No difficulty breathing. Reports discomfort in her neck/throat with range of motion. Endorses fever and chills. No known sick contacts. No loss of taste or smell. 11/26/2021 interval history: patient was seen by ENT and had a laryngoscope patient does not need I&D and recommended Unasyn and Decadron 8 mg q.8 for 3 doses, strictly NPO other than ice chips, in the main patient's symptoms worsen with stridor patient may be intubated, currently patient stats pain is better denies any difficulty with breathing, fever or chills. 11/27/2021 interval history: patient remains clinically stable however was quite hungry and patient was seen by speech therapy is and had evaluation recommended patient can have a regular diet, will start a regular diet will continue present management reassess tomorrow and further recommendation to follow. 11/28/2021 interval history:Management to see the patient patient appears more in pain was complaining neck pain and neck swelling state CT scan of the neck was ordered which was reviewed the ENT patient was emergently taken to OR for possible I&D, will continue to monitor and follow the patient. 11/29/2021 interval history: patient with a pharyngeal abscess had a emergent I and D on 11/28, this morning patient is the pain is still persist and painful to swallow, will continue clear liquid, patient white counts of persist multifactorial secondary to steroid as well as possible infection, will culture no growth so far, abscess culture was collected will follow-up, will continue Unasyn and monitor further recommendation to follow Review of Systems Review of Systems: All systems reviewed & are unremarkable except as noted in HPI and below Exam Narrative: Patient is comfortable, NAD patient is in pain HE
--- NOTE | 2021-11-29 13:29 | PM.PNGS ---
Progress Note: A&P Assessment and Plan (1) Right maxillary sinusitis: Code(s): J32.0 - Chronic maxillary sinusitis Status: Acute Assessment and Plan: Please spray nasal saline spray 4-6 times per day in the right nasal passage. Continue scheduled unasyn. White count/cbc daily. Advance to soft diet. No limitation on diet/activity. Change gauze over neck drain as needed, careful not to remove sandra drain. transition from IV to oral pain medication, tylenol and ibuprofen are fine. If the white count continues to trend down would recommend discharging 11/30 on a soft diet with 7 days of augmentin and follow up with me early next week. Thank you. (2) Parapharyngeal abscess: Code(s): J39.0 - Retropharyngeal and parapharyngeal abscess Status: Acute (3) Abscess, retropharyngeal: Code(s): J39.0 - Retropharyngeal and parapharyngeal abscess Status: Acute Subjective Subjective Date/Time Seen: 11/29/21 13:29 Patient reports mildly increased pain. WBC vastly improved 12.9 from 20. Hgb relatively stable at 10.5. Unsure why so low. Patient tolerating clears. No odd drainage through the left neck incision reported by patient and/or nursing. No culture data yet. Objective Data Vital Signs Vital Signs: Vital Signs - 24 hr 11/28/21 16:59 11/28/21 19:00 11/28/21 19:15 Temperature 37.0 C 36.3 C L Pulse Rate 80 62 70 Respiratory Rate 16 10 L 12 Blood Pressure 108/69 122/88 134/85 Pulse Oximetry 100 100 100 11/28/21 19:30 11/28/21 19:35 11/28/21 19:45 Temperature Pulse Rate 59 L 54 L 58 L Respiratory Rate 10 L 13 18 Blood Pressure 134/97 H 119/98 H 96/43 L Pulse Oximetry 94 96 100 11/28/21 20:00 11/28/21 20:15 11/28/21 20:40 Temperature Pulse Rate 67 58 L Respiratory Rate 10 L 12 Blood Pressure 125/81 126/86 Pulse Oximetry 100 98 98 11/28/21 22:30 11/29/21 00:00 11/29/21 04:00 Temperature 36.3 C L 36.0 C L 36.1 C L Pulse Rate 62 70 64 Respiratory Rate 21 H 21 H 20 Blood Pressure 109/66 117/78 105/54 L Pulse Oximetry 100 100 99 11/29/21 08:50 Temperature 36.6 C Pulse Rate 56 L Respiratory Rate 16 Blood Pressure 116/78 Pulse Oximetry 96 Intake/Output Intake/Output: Intake & Output 11/26/21 11/27/21 11/28/21 11/29/21 23:59 23:59 23:59 23:59 Intake Total 1200 3010 1900 200 Balance 1200 3010 1900 200 Meds/Results Medications: Active Medications Generic Name Dose Route Start Last Admin Trade Name Freq PRN Reason Stop Dose Admin Ampicillin Sodium/Sulbactam Sodium 3 gm in 100 mls @ 200 mls/hr 11/27/21 19:30 11/29/21 13:06 Unasyn 3 Gm/Ns 100 Ml IVPB 200 mls/hr Q6HR JONY Administration Morphine Sulfate 4 mg 11/26/21 12:09 11/29/21 02:50 Morphine Sulfate (*Crx) 4 Mg/Ml Inj IV PUSH 4 mg Q2H PRN Administration Pain Rated 7-10 Ondansetron HCl 4 mg 11/26/21 12:09 Ondansetron Inj 4 Mg/2 Ml Vial IV PUSH Q4H PRN Nausea Oxymetazoline HCl 1 spray 11/28/21 18:26 11/29/21 02:51 Oxymetazoline Hcl 0.05% Jimmy 15 Ml Btl (*Bkc) NASAL 1 spray ONCE PRN Administration Congestion Radiology Results: ITS Impressions Soft Tissue Neck CT 11/28/21 14:53 IMPRESSION: 1. Left retropharyngeal abscess. Inflammation of the oropharynx and hypopharynx with interval improvement. Labs Labs: Laboratory Results - last 24 hr 11/29/21 10:13 WBC 12.9 H RBC 3.58 L Hgb 10.5 L Hct 32.0 L MCV 89.4 MCH 29.3 MCHC 32.8 RDW 12.8 Plt Count 367 MPV 9.4 Quality VTE Prophylaxis VTE prophylaxis: mechanical ordered
[2021-11-29 15:15] VITALS: BP 92/66; PULSE 85; RESP 18; TEMP 36.8; O2SAT 95
[2021-11-29] MEDS: SALINE 0.65% NAS SOLN 44 ML BTL 1 SPRAY NASAL ×2 (17:39→20:55)
[2021-11-29] MEDS: IBUPROFEN 600 MG TABLET PO (17:48)
[2021-11-29 19:22] VITALS: BP 88/55; PULSE 81; RESP 17; TEMP 36.1; O2SAT 99
[2021-11-29 20:00] VITALS: BP 115/57
[2021-11-29] MEDS: MELATONIN 5 MG TABLET PO (23:06)
[2021-11-30 04:00] VITALS: BP 100/54; PULSE 65; RESP 18; TEMP 36.6; O2SAT 99
[2021-11-30 05:18] LABS: Basophils Percent Auto 0.2 % (0.2-1.2); Eosinophils Absolute Auto 0.1 K/mm3 (0-0.3); Eosinophils Percent Auto 0.5 % (0-4.4); Hematocrit 35.5 % (37.0-47.0); Hemoglobin 11.3 g/dL (12.0-15.0); Immature Granulocyte Absolute 0.15 K/mm3 (0.00-0.031); Immature Granulocyte Percent A 1.4 % (0-0.5); Lymphocytes Absolute Auto 4.01 K/mm3 (0.9-3.2); Lymphocytes Percent Auto 36.6 % (18.3-44.2); Mean Corpuscular HGB Conc 31.8 g/dl (32-36); Mean Corpuscular Hemoglobin 29.2 pg (26-34); Mean Corpuscular Volume 91.7 fl (80-100); Mean Platelet Volume 9.3 fl (7.4-10.4); Monocytes Absolute Auto 1.1 K/mm3 (0.1-0.6); Monocytes Percent Auto 10.2 % (2.6-8.5); Neutrophils Absolute Auto 5.6 K/mm3 (1.3-6.7); Neutrophils Percent Auto 51.1 % (45.5-73.1); Platelet Count Result 361 k/mm3 (150-375); Red Blood Count 3.87 M/mm3 (4.2-5.4); Red Cell Distribution Width 12.9 % (11.5-14.5)
[2021-11-30] MEDS: SALINE 0.65% NAS SOLN 44 ML BTL 1 SPRAY NASAL (05:22)
[2021-11-30] MEDS: AMPICILLIN SULB 3 GM/NS 100 ML 3 GM/100 ML VIAL IVPB (05:22)
[2021-11-30] MEDS: IBUPROFEN 600 MG TABLET PO (05:22)
[2021-11-30 05:51] LABS: Anion Gap 6 mmol/L (8-16); Blood Urea Nitrogen 22 mg/dL (7-17); Calcium 7.7 mg/dL (8.4-10.2); Carbon Dioxide 28 mmol/L (22-30); Chloride 103 mmol/L (98-107); Estimated CRCL calculation 90 ml/min; Estimated Glomerular Filt Rate > 60; Glucose 108 mg/dL (65-110); Potassium 3.4 mmol/L (3.4-5.0); Sodium 137 mmol/L (137-145)
[2021-11-30 06:26] LABS: Atypical Lymphocytes Present; Platelet Estimate Adequate (Adequate)
--- NOTE | 2021-11-30 07:53 | PM.PNGS ---
Progress Note: A&P Assessment and Plan (1) Parapharyngeal abscess: Code(s): J39.0 - Retropharyngeal and parapharyngeal abscess Status: Acute Assessment and Plan: Ok for discharge from ENT standpoint if ok per Hospitalist. Recommend discharge on bid augmentin 875/125, and over the counter probiotic for one week, and very very frequent 4-6 times per day nasal saline spray in the right nasal passage. Soft diet until follow up. Follow up Wednesday or Wednesday with me for drain removal. [phone]. Change the drain gauze as needed. Thank you. (2) Abscess, retropharyngeal: Code(s): J39.0 - Retropharyngeal and parapharyngeal abscess Status: Acute Subjective Subjective Date/Time Seen: 11/30/21 07:53 Discussed with nursing this am. Per nursing patient overall doing well. WBC down to 11 from 12.9, hgb uptrending as well. Afebrile. Patient tolerating soft diet. Objective Data Vital Signs Vital Signs: Vital Signs - 24 hr 11/29/21 08:50 11/29/21 15:15 11/29/21 19:22 Temperature 36.6 C 36.8 C 36.1 C L Pulse Rate 56 L 85 81 Respiratory Rate 16 18 17 Blood Pressure 116/78 92/66 L 88/55 L Pulse Oximetry 96 95 99 11/29/21 20:00 11/30/21 04:00 Temperature 36.6 C Pulse Rate 65 Respiratory Rate 18 Blood Pressure 115/57 L 100/54 L Pulse Oximetry 99 Intake/Output Intake/Output: Intake & Output 11/27/21 11/28/21 11/29/21 11/30/21 23:59 23:59 23:59 23:59 Intake Total 3010 1900 1220 1200 Balance 3010 1900 1220 1200 Meds/Results Medications: Active Medications Generic Name Dose Route Start Last Admin Trade Name Freq PRN Reason Stop Dose Admin Ampicillin Sodium/Sulbactam Sodium 3 gm in 100 mls @ 200 mls/hr 11/27/21 19:30 11/30/21 06:22 Unasyn 3 Gm/Ns 100 Ml IVPB Infused Q6HR JONY Infusion Ibuprofen 600 mg 11/29/21 15:32 11/30/21 05:22 Ibuprofen 600 Mg Tablet PO 600 mg Q8H PRN Administration Pain Melatonin 5 mg 11/30/21 21:00 Melatonin 5 Mg Tablet PO HS JONY Ondansetron HCl 4 mg 11/26/21 12:09 Ondansetron Inj 4 Mg/2 Ml Vial IV PUSH Q4H PRN Nausea Oxymetazoline HCl 1 spray 11/28/21 18:26 11/29/21 02:51 Oxymetazoline Hcl 0.05% Jimmy 15 Ml Btl (*Bkc) NASAL 1 spray ONCE PRN Administration Congestion Pantoprazole Sodium 40 mg 11/30/21 09:00 Pantoprazole 40 Mg Tablet PO QAM JONY Potassium Chloride 40 meq 11/30/21 07:49 Potassium Chloride 20 Meq Packet (For Liquid) PO 11/30/21 07:50 ONCE ONE Sodium Chloride 1 spray 11/29/21 18:00 11/30/21 05:22 Saline 0.65% Jimmy Soln 44 Ml Btl NASAL 1 spray 6XD JONY Administration Radiology Results: ITS Impressions Soft Tissue Neck CT 11/28/21 14:53 IMPRESSION: 1. Left retropharyngeal abscess. Inflammation of the oropharynx and hypopharynx with interval improvement. Labs Labs: Laboratory Results - last 24 hr 11/29/21 11/30/21 11/30/21 10:13 05:10 05:10 WBC 12.9 H 11.0 H RBC 3.58 L 3.87 L Hgb 10.5 L 11.3 L Hct 32.0 L 35.5 L MCV 89.4 91.7 MCH 29.3 29.2 MCHC 32.8 31.8 L RDW 12.8 12.9 Plt Count 367 361 MPV 9.4 9.3 Immature Gran % (Auto) 1.4 H Neut % (Auto) 51.1 Lymph % (Auto) 36.6 [place] % (Auto) 10.2 H Eos % (Auto) 0.5 Baso % (Auto) 0.2 Lymph # (Auto) 4.01 H [place] # (Auto) 1.1 H Eos # (Auto) 0.1 Baso # (Auto) 0.0 Abs Immat Gran (auto) 0.15 H Absolute Neuts (auto) 5.6 Absolute Nucleated RBC 0.0 Nucleated RBC % 0.0 Atypical Lymphocytes Present Platelet Estimate Adequate Sodium 137 Potassium 3.4 Chloride 103 Carbon Dioxide 28 Anion Gap 6 L BUN 22 H D Creatinine 0.70 Estim Creat Clear Calc 90 Estimated GFR > 60 Glucose 108 Calcium 7.7 L Quality VTE Prophylaxis VTE prophylaxis: mechanical ordered
[2021-11-30 08:00] VITALS: BP 110/52; PULSE 73; RESP 18; TEMP 36.4; O2SAT 93
--- NOTE | 2021-11-30 09:43 | PM.DS ---
DS: Admitting Diagnosis Discharge Date 11/30/2021 Admitting Diagnosis difficulty swallowing DS: Discharge Diagnosis Discharge Diagnosis (1) Abscess, retropharyngeal: Code(s): J39.0 - Retropharyngeal and parapharyngeal abscess Status: Acute Assessment and Plan: ED-HPI narrative: Patient is a 51-year-old female who presents ER with sore throat. Ongoing for 4 days. Reports increased difficulty with swallowing water/food/spit. No difficulty breathing. Reports discomfort in her neck/throat with range of motion. Endorses fever and chills. No known sick contacts. No loss of taste or smell. 11/26/2021 interval history: patient was seen by ENT and had a laryngoscope patient does not need I&D and recommended Unasyn and Decadron 8 mg q.8 for 3 doses, strictly NPO other than ice chips, in the main patient's symptoms worsen with stridor patient may be intubated, currently patient stats pain is better denies any difficulty with breathing, fever or chills. 11/27/2021 interval history: patient remains clinically stable however was quite hungry and patient was seen by speech therapy is and had evaluation recommended patient can have a regular diet, will start a regular diet will continue present management reassess tomorrow and further recommendation to follow. 11/28/2021 interval history:Management to see the patient patient appears more in pain was complaining neck pain and neck swelling state CT scan of the neck was ordered which was reviewed the ENT patient was emergently taken to OR for possible I&D, will continue to monitor and follow the patient. 11/29/2021 interval history: patient with a pharyngeal abscess had a emergent I and D on 11/28, this morning patient is the pain is still persist and painful to swallow, will continue clear liquid, patient white counts of persist multifactorial secondary to steroid as well as possible infection, will culture no growth so far, abscess culture was collected will follow-up, will continue Unasyn and monitor further recommendation to follow DS: Summary Hospital Course Reason for hospitalization: ED-HPI narrative: Patient is a 51-year-old female who presents ER with sore throat. Ongoing for 4 days. Reports increased difficulty with swallowing water/food/spit. No difficulty breathing. Reports discomfort in her neck/throat with range of motion. Endorses fever and chills. No known sick contacts. No loss of taste or smell. 11/26/2021 interval history: patient was seen by ENT and had a laryngoscope patient does not need I&D and recommended Unasyn and Decadron 8 mg q.8 for 3 doses, strictly NPO other than ice chips, in the main patient's symptoms worsen with stridor patient may be intubated, currently patient stats pain is better denies any difficulty with breathing, fever or chills Hospital Course: ED-HPI narrative: Patient is a 51-year-old female who presents ER with sore throat. Ongoing for 4 days. Reports increased difficulty with swallowing water/food/spit. No difficulty breathing. Reports discomfort in her neck/throat with range of motion. Endorses fever and chills. No known sick contacts. No loss of taste or smell. 11/26/2021 interval history: patient was seen by ENT and had a laryngoscope patient does not need I&D and recommended Unasyn and Decadron 8 mg q.8 for 3 doses, strictly NPO other than ice chips, in the main patient's symptoms worsen with stridor patient may be intubated, currently patient stats pain is better denies any difficulty with breathing, fever or chills. 11/27/2021 interval history: patient remains clinically stable however was quite hungry and patient was seen by speech therapy is and had evaluation recommended patient can have a regular diet, will start a regular diet will continue present management reassess tomorrow and further recommendation to follow. 11/28/2021 interval history:Management to see the patient patient appears more in pain was
--- NOTE | 2021-11-30 09:57 | PC.NURSE ---
Patient removed her own IV at this time after she was told to wait until she had been discharged. Patient then stated that she took out and there isn't a reason she couldn't have. The patient was also very upset that her sandra drain wasn't being removed at this time. The discharge instructions were gone over with the patient and she adamantly did not listen to any information presented to her, informed the patient that she was able to leave on her own accord and drive herself home at this time and she stated she would leave in 10 minutes.
== END 2021-11-30 10:26 | disposition home or self-care (01) | DRG 144 ==
LOC: ANHED 09:10 → ANHIMU 15:19 → ANH2MED 11-27 14:59
PROVIDERS: Otolaryngology; Admitting Provider Family Medicine; Emergency Provider Emergency Medicine; PCP Family Medicine; Visit Provider Family Medicine
PROC: 099Q8ZZ Drainage of Right Maxillary Sinus, Via Natural or Artificial Opening Endoscopic (ICD-10-PCS; principal; 2021-11-28 17:00)
DX: J39.0 Retropharyngeal and parapharyngeal abscess (principal); J05.10 Acute epiglottitis without obstruction; J32.0 Chronic maxillary sinusitis; R13.10 Dysphagia, unspecified; F17.210 Nicotine dependence, cigarettes, uncomplicated
CPT/HCPCS: 36415; 70491; 80048; 80053; 85025; 85027; 87040; 87070; 87075; 87077; 87081; 87205; 87880; 92610; 96361; 96365; 96366; 96375; 96376; 99285; A9270; G0378; J0295; J0330; J1100; J1170; J2250; J2270; J2405; J2704; J3010; J7030; J7120; Q9967